=== PATIENT | female | born 1945 | race Caucasian/White ===

== ENCOUNTER 2024-03-15 10:05 | Emergency (ER) | payer MEDICARE ==
[~2024-03-15] VITALS: Ht 165.1 cm; Wt 69.8 kg
[2024-03-15] MEDS ORDERED: METO1TAB32 PO (10:20)
[2024-03-15] MEDS ORDERED: CLAR10CA3 PO (10:20)
[2024-03-15] MEDS ORDERED: EZET10TA21 PO (10:21)
[2024-03-15] MEDS ORDERED: ASPI81CH33 PO (10:21)
[2024-03-15 10:49] LABS: BASO % 0.4 % (0.0-1.0); EOS # 0.2 10^3/uL (0.0-0.5); EOS % 2.9 % (0.0-3.0); HEMOGLOBIN 13.8 g/dl (12.0-15.5); LYMPH # 1.4 10^3/uL (1.5-5.0); LYMPH % 17.3 % (24.0-44.0); MEAN CORPUSCULAR HEMOGLOBIN 29.6 pg (27.0-33.0); MEAN CORPUSCULAR HGB CONC 32.9 g/dl (32.0-36.5); MEAN CORPUSCULAR VOLUME 90.1 fl (80.0-96.0); MONO # 0.5 10^3/uL (0.0-0.8); MONO % 6.5 % (2.0-8.0); NEUTROPHILS # 5.7 10^3/uL (1.5-8.5); NEUTROPHILS % 72.4 % (36.0-66.0); PLATELET COUNT, AUTOMATED 257 10^3/uL (150-450); RED BLOOD COUNT 4.66 10^6/uL (4.00-5.40); WHITE BLOOD COUNT 7.9 10^3/uL (4.0-10.0)
[2024-03-15 11:05] LABS: INR 0.96; PARTIAL THROMBOPLASTIN TIME 24.3 SECONDS (24.8-34.2); PROTHROMBIN TIME 12.5 SECONDS (12.5-14.5)
[2024-03-15 11:19] LABS: LIPASE 28 U/L (12-53)
[2024-03-15 11:20] LABS: AMYLASE 52 U/L (30-118)
[2024-03-15 11:21] LABS: ALBUMIN 3.4 G/DL (3.2-5.2); ALKALINE PHOSPHATASE 84 U/L (46-116); ALT/SGPT 15 U/L (7.0-40); AST/SGOT 21 U/L (<34); BILIRUBIN,DIRECT 0.3 MG/DL (<0.4); BILIRUBIN,TOTAL 1.7 MG/DL (0.3-1.2); BLOOD UREA NITROGEN 28 MG/DL (9-23); CALCIUM LEVEL 9.2 MG/DL (8.3-10.6); CARBON DIOXIDE LEVEL 26 MMOL/L (20-31); CHLORIDE LEVEL 107 MMOL/L (98-107); CREATININE FOR GFR 0.74 MG/DL (0.55-1.30); GLOMERULAR FILTRATION RATE > 60.0 (>39); GLUCOSE, FASTING 150 MG/DL (74-106); POTASSIUM SERUM 4.3 MMOL/L (3.5-5.1); SODIUM LEVEL 141 MMOL/L (136-145); TOTAL PROTEIN 6.5 G/DL (5.7-8.2)
[2024-03-15] MEDS: NS 500 ML IV ONE (11:39)
[2024-03-15] MEDS ORDERED: ISOVUE-370 76% 100ML VIAL As Ordered ONE (16:32)
[2024-03-15 17:06] LABS: CK-MB VALUE MASS < 1.0 NG/ML (<3.6)
[2024-03-15 17:07] LABS: CPK CREATINE PHOSPHOKINASE 41 U/L (34-145); MB/CK RELATIVE INDEX 2.43 (< OR =4)
[2024-03-15 17:44] LABS: CK-MB VALUE MASS < 1.0 NG/ML (<3.6); CPK CREATINE PHOSPHOKINASE 43 U/L (34-145); MB/CK RELATIVE INDEX 2.32 (< OR =4)
[2024-03-15 17:50] VITALS: O2SAT 98
[2024-03-15] MEDS: MECLIZINE 25 MG TABLET PO ONE (19:35)
[2024-03-15 20:04] VITALS: BP 171/77; TEMP 97.5
[2024-03-15] MEDS ORDERED: MECL-209 PO (20:08)
== END 2024-03-15 20:40 | disposition home or self-care (01) ==
LOC: EDBD 10:05 → M ED 10:05
DX: R42 Dizziness and giddiness (principal); E86.1 Hypovolemia; K57.30 Diverticulosis of large intestine without perforation or abscess without bleeding; I44.7 Left bundle-branch block, unspecified; I49.3 Ventricular premature depolarization; I25.2 Old myocardial infarction; Z88.1 Allergy status to other antibiotic agents; Z88.8 Allergy status to other drugs, medicaments and biological substances; Z79.82 Long term (current) use of aspirin; Z79.899 Other long term (current) drug therapy
CPT/HCPCS: 70450; 70496; 70498; 70544; 70551; 71045; 74177; 80047; 80048; 80076; 81001; 82150; 82550; 82553; 83605; 83690; 83735; 84484; 85025; 85610; 85730; 93005; 93041; 96360; 96361; 99285; Q9967